=== PATIENT | male | born 1940 | race Caucasian/White ===

== ENCOUNTER → 2019-09-07 | Outpatient (CLI) | payer MEDICARE ==
--- NOTE | 2019-09-07 14:30 | CT ---
EXAMINATION TYPE: CT lumbar spine wo con DATE OF EXAM: 09/07/2019 COMPARISON: Preoperative CT 11/13/2011 HISTORY: 79-year-old male LEFT LEG WEAKNESS STATUS POST BACK SX TECHNIQUE: Contiguous axial scanning of the lumbar spine without IV contrast. Coronal and sagittal re constructions performed. CT DLP: 970 mGycm Automated exposure control for dose reduction was used. FINDINGS: No prevertebral or paravertebral soft tissue abnormality. Post surgical changes of L1-L5 posterior and interbody fusion. Fixed grade 1 anterolisthesis at L4-L5 and grade 1 retrolisthesis at L1-L2. There are corresponding laminectomies along the surgical levels. Suggestion of a interposed fluid collection measuring 3.3 cm wide by 2.2 cm AP by approximately 3.5 c m craniocaudal within the laminectomy bed at the L3-L4 level, refer to sagittal image 23 and axial im age 46. There may be a mild narrowing of the spinal canal at L4-L5. On the right, changes result in moderate to severe neuroforaminal stenosis at L5-S1, moderate at L4-L 5, and mild at L1-L2 and L2-L3. On the left, changes result in moderate to severe neural foraminal stenosis at L5-S1, moderate at L4- L5, and mild at L1-L2, L2-L3, L3-L4. IMPRESSION: 1. POSTSURGICAL CHANGES OF L1-L5 POSTERIOR AND INTERBODY FUSION. 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 2. Corresponding laminectomies. There is suggestion of a 3.5 x 3.3 x 2.2 cm fluid collection at the L 3-L4 laminectomy bed. Seroma, chronic postoperative hematoma, and abscess are differential considerat ions. Further clinical correlation recommended. 3. Variable bilateral neuroforaminal stenoses as outlined above, moderate to severe on both sides at L5-S1 and moderate on both sides at L4-L5.
== END | disposition home or self-care (01) ==
LOC: RADCTMAIN 12:02
PROVIDERS: ATTEND Neurological Surgery
DX: M48.07 Spinal stenosis, lumbosacral region (principal); M48.061 Spinal stenosis, lumbar region without neurogenic claudication; M43.16 Spondylolisthesis, lumbar region; Z98.1 Arthrodesis status
CPT/HCPCS: 72131

== ENCOUNTER → 2020-08-28 | Outpatient (CLI) | payer MEDICARE ==
--- NOTE | 2020-08-28 10:54 | US ---
EXAMINATION TYPE: US kidneys/renal and bladder DATE OF EXAM: 08/28/2020 COMPARISON: NONE CLINICAL HISTORY: R94.4 Abnormal results of kidney function studies. EXAM MEASUREMENTS: Right Kidney: 10.9 x 4.7 x 4.9 cm Left Kidney: 11.8 x 5.1 x 4.1 cm Right Kidney: cluster of cysts measuring 1.5 x 2.0 x 1.3cm Left Kidney: cysts noted, largest measuring 4.1 x 2.8 x 5.4cm Bladder: echogenic focus seen posterior measuring 2.6 x 1.4 x 3.3cm IMPRESSION: 1. Bilateral renal cysts. 2. A large 3.2 cm Urinary bladder calcification
== END | disposition home or self-care (01) ==
LOC: RADUSWWP 09:16
PROVIDERS: ATTEND Family Medicine
DX: N28.1 Cyst of kidney, acquired (principal); N32.89 Other specified disorders of bladder
CPT/HCPCS: 76770

== ENCOUNTER → 2024-08-20 | Outpatient (CLI) | payer MEDICARE ==
--- NOTE | 2024-08-21 19:46 | US ---
EXAMINATION TYPE: US kidneys/renal and bladder DATE OF EXAM: 08/20/2024 COMPARISON: NONE CLINICAL INDICATION: Male, 83 years old with history of N18.32 CHR KIDNEY DISEASE; CKD. urinary frequ ency TECHNIQUE: Grayscale imaging of the bilateral kidneys and urinary bladder: FINDINGS: EXAM MEASUREMENTS: Right Kidney: 10.8 x 5.4 x 4.4 cm Left Kidney: 11.2 x 4.5 x 3.5 cm Post Void Residual Volume: 59.4 mL Right Kidney: anechoic area = 1.5 x 1.3 x 1.4cm , likely simple cortical renal cyst Left Kidney: anechoic areas noted, largest = 5.7 x 3.7 x 4.9cm , this has posterior wall enhancement smooth margins simple cortical renal cyst Bladder: echogenic focus posteriorly = 2.7cm may have some shadowing. Urinary bladder calcification present. Bilateral Jets seen: no Normal Post Void Residual: no IMPRESSION: 1. Urinary bladder calcification measuring 2.7 cm. 2. Bilateral cortical renal cysts. [facility], , 08/21/2024 7:43 PM
== END | disposition home or self-care (01) ==
LOC: RADUSWWP 14:42
PROVIDERS: ATTEND Internal Medicine
DX: N18.32 Chronic kidney disease, stage 3b (principal); N28.1 Cyst of kidney, acquired; N32.89 Other specified disorders of bladder
CPT/HCPCS: 76770

== ENCOUNTER → 2024-09-16 | Outpatient (CLI) | payer MEDICARE ==
--- NOTE | 2024-09-16 15:24 | XR ---
EXAMINATION TYPE: XR KUB DATE OF EXAM: 09/16/2024 2:02 PM COMPARISON: None CLINICAL INDICATION: Male, 84 years old with history of N20.9 URINARY CALCULUS KUB; [facility] TECHNIQUE: One radiographic view of the abdomen was obtained. FINDINGS: The bowel gas pattern is nonspecific without dilated loops of small or large bowel. . Fecal material and gas are demonstrated throughout the colon and rectum. There is no evidence for organome duran or pneumoperitoneum. The osseous structures are intact. No abnormal calcifications are present . Fixation hardware in the spine and surgical changes appear intact. Mild degeneration changes of the hips with osteophyte formation joint space narrowing. IMPRESSION: 1. No renal calculi definitively visualized. 2. Nonspecific bowel gas pattern without radiographic evidence for acute process. [facility], , 09/16/2024 3:22 PM
== END | disposition home or self-care (01) ==
LOC: RADXRMAIN 13:40
PROVIDERS: ATTEND Urology
DX: N20.9 Urinary calculus, unspecified (principal)
CPT/HCPCS: 74018